=== PATIENT | female | born 1995 | race Caucasian/White ===

== ENCOUNTER 2019-05-18 21:44 | Emergency (ER) | payer MEDICAID, OTHER | END 2019-05-19 00:16 | disposition home or self-care (01) | LOC: FTE 05-19 00:16 | DX: M79.641 Pain in right hand (principal) | CPT/HCPCS: 81025; 99283 ==

== ENCOUNTER 2019-05-25 14:04 | Emergency (ER) | payer OTHER, MEDICAID | END 2019-05-25 17:18 | disposition home or self-care (01) | LOC: FTE 14:04 | DX: M25.531 Pain in right wrist (principal); G56.21 Lesion of ulnar nerve, right upper limb | CPT/HCPCS: 29125; 73080-RT; 73110-RT; 99283-25 ==